=== PATIENT | female | born 1995 | race African-American/Black ===

== ENCOUNTER 2021-05-08 08:24 | Emergency (ER) | payer BC ==
[~2021-05-08] VITALS: Ht 162.6 cm; Wt 59.2 kg
--- NOTE | 2021-05-08 09:14 | PHYS DOC ---
Past Medical History Past Medical History: No Pertinent History, Other Past Surgical History: Cholecystectomy Smoking Status: Never Smoker Alcohol Use: None Drug Use: None General Adult EDM: Chief Complaint: FLU SYMPTOM HPI: HPI: Patient is a 26 year old female with no significant past medical history who pre sents with nasal congestion, sore throat, cough, body aches. Patient reports her symptoms began 2 days ago and have been worse since onset. She also reports associated nausea and one episode of emesis yesterday. Patient states she has adequate fluid intake over this past few days. Patient has had similar symptoms before when she had the flu in the past. She has taken no medications at home. She denies any fever, chills, sputum production, abdominal pain, diarrhea, constipation. Review of Systems: Review of Systems: Constitutional: See HPI Eyes: Denies change in visual acuity or visual field deficits HENT: See HPI Respiratory: See HPI Cardiovascular: Denies chest pain or edema. GI: See HPI : Denies dysuria or hematuria. Musculoskeletal: Denies back pain or joint pain. Integument: Denies rash or other skin lesions. Neurologic: Denies headache, focal weakness or sensory changes. Heart Score: C/O Chest Pain: No Allergies: Allergies: Allergies Coded Allergies Type Severity Reaction Last Updated Verified No Known Drug Allergies 10/28/14 No Physical Exam: PE: Constitutional: Well developed, well nourished, tearful, patient appears fatigued. HENT: Normocephalic, atraumatic, bilateral external ears normal, oropharynx moist, no oral exudates, nose without obvous deformity or discharge, bilateral turbinates erythematous and swollen. Eyes: EOMI, conjunctiva normal, no discharge. Neck: Normal range of motion, no step-offs, no midline tenderness, supple, no stridor. Cardiovascular: Heart rate regular rhythm, no murmur. Lungs & Thorax: Bilateral breath sounds without wheezes, rales or rhonchi. Abdomen: Bowel sounds normal, soft, no tenderness, no masses, no pulsatile masses. Skin: Warm, dry, no erythema, no rash. Current Patient Data: Labs: Laboratory Tests Test 05/08/21 08:40 POC Urine HCG, Qualitative Hcg negative (Negative) Vital Signs: Vital Signs Date Time Temp Pulse Resp B/P (MAP) Pulse Ox O2 Delivery O2 Flow Rate FiO2 05/08/21 10:12 97 19 110/70 (83) 99 Room Air 05/08/21 09:48 98 117/73 (88) 97 Room Air 05/08/21 09:18 102 116/63 (80) 99 Room Air 05/08/21 08:48 98 131/90 (104) 100 Room Air 05/08/21 08:32 99.2 98 20 137/81 (99) 100 Room Air 99.2 Course & Med Decision Making: Course & Med Decision Making Pertinent Labs and Imaging studies reviewed. (See chart for details) Patient is an otherwise healthy 26-year-old female who presents with 2-day history of nasal congestion with associated dry cough, body aches. Flu and COVID swabs obtained. Flu a positive. Patient advised to initiate supportive treatment including cool-mist humidifier at night, Mucinex and acetaminophen/ibuprofen. Dragon Disclaimer: Dragon Disclaimer: This electronic medical record was generated, in whole or in part, using a voice recognition dictation system. Departure Departure Impression: Primary Impression: Influenza A Disposition: HOME / SELF CARE / HOMELESS Condition: STABLE Referrals: NO PCP (PCP) Patient Instructions: Influenza, Adult, [id number] Additional Instructions: Your test came back positive for flu A. You should take in plenty of fluids and get rest. You may take [id number] ibuprofen (Advil, Motrin) alternating with acetaminophen (Tylenol) every 4 hours for body pain and/or fever. At bedtime, sleep with a coolmist humidifier and you may take the Tessalon Perles. During the day, you should take Mucinex every 8 hours. Please return emergency department if your symptoms become unmanageable at home or they get worse. You may also follow-up with your primary care provider for any further concerns. Scripts Guaifenesin (GUAIFENESIN) 400 Mg Tablet 1 TAB PO TID for cough, #20 TAB 0 Refills Prov: DAMON WOODS 05/08/21 Benzonatate (BENZONATATE) 100 Mg Capsule 1-2 CAP PO HS, #20 CAP Take 1 to 2 capsules by mouth at night to suppress cough. Prov: DAMON WOODS 05/08/21 DAMON WOODS May 08, 2021 09:14
[2021-05-08 09:18] LABS: INFLUENZA B PATIENT NEGATIVE (NEGATIVE)
[2021-05-08] MEDS ORDERED: ONDANSETRON ODT 4 MG TAB.RAPDIS. PO ONE (09:30)
[2021-05-08 09:32] LABS: INFLUENZA A PATIENT POSITIVE (NEGATIVE)
[2021-05-08] MEDS ORDERED: BENZ-8 PO (10:06)
[2021-05-08] MEDS ORDERED: GUAI400T78 PO (10:06)
[2021-05-08 10:12] VITALS: BP 110/70
--- NOTE | 2021-05-09 13:18 | NUR ---
IP: Informed pt of negative covid test. pt verbalized understanding.
== END 2021-05-08 10:17 | disposition home or self-care (01) ==
LOC: ER 08:24
DX: J10.1 Influenza due to other identified influenza virus with other respiratory manifestations (principal); Z20.822 Contact with and (suspected) exposure to COVID-19; Z90.49 Acquired absence of other specified parts of digestive tract
CPT/HCPCS: 81025; 87804; 99285; U0003; U0005